=== PATIENT | male | born 1935 | race Caucasian/White ===

== ENCOUNTER → 2018-02-08 | Outpatient (CLI) | payer MEDICARE, OTHER | END | disposition home or self-care (01) | LOC: CFH 15:55 | PROVIDERS: ATTEND Nurse Practitioner Family | DX: M50.30 Other cervical disc degeneration, unspecified cervical region (principal); M41.9 Scoliosis, unspecified; M51.36 Other intervertebral disc degeneration, lumbar region | CPT/HCPCS: 72050; 72110; 72141; 72148; 73523 ==

== ENCOUNTER 2021-01-07 07:41 | Outpatient (CLI) | payer MEDICARE, OTHER | END 2021-01-07 23:59 | disposition home or self-care (01) | LOC: ROC 07:41 | PROVIDERS: ATTEND Radiology Radiation Oncology | DX: C49.11 Malignant neoplasm of connective and soft tissue of right upper limb, including shoulder (principal) | CPT/HCPCS: G0463 ==

== ENCOUNTER → 2021-01-15 | Outpatient (CLI) | payer MEDICARE, OTHER ==
[~2021-01-15] MED LIST: REGADENOSON 0.4 MG/5 ML SYRINGE ONE
== END | disposition home or self-care (01) ==
LOC: CFH 07:48
PROVIDERS: ATTEND Internal Medicine Cardiovascular Disease
DX: I49.3 Ventricular premature depolarization (principal); R55 Syncope and collapse
CPT/HCPCS: 78452; 93017; A9502; J2785

== ENCOUNTER → 2021-03-30 | Outpatient (CLI) | payer MEDICARE, OTHER | END | disposition home or self-care (01) | LOC: ROC 07:49 | PROVIDERS: ATTEND Radiology Radiation Oncology | DX: Z08 Encounter for follow-up examination after completed treatment for malignant neoplasm (principal); C49.11 Malignant neoplasm of connective and soft tissue of right upper limb, including shoulder ==